=== PATIENT | female | born 1990 | race American Indian/Alaskan Native ===

== ENCOUNTER 2018-10-01 22:45 | Emergency (ER) | payer SELFPAY ==
[2018-10-01 23:09] VITALS: BP 158/113
== END 2018-10-01 23:29 | disposition left against medical advice (07) ==
LOC: ED 22:45
DX: R07.89 Other chest pain (principal); R10.9 Unspecified abdominal pain; Z53.21 Procedure and treatment not carried out due to patient leaving prior to being seen by health care provider
CPT/HCPCS: 93005; 93010